=== PATIENT | female | born 1995 | race Caucasian/White ===

== ENCOUNTER 2017-10-11 22:17 | Emergency (ER) | payer BC, MEDICAID ==
[~2017-10-11] VITALS: Ht 152.4 cm; Wt 65.8 kg
[2017-10-11 22:18] VITALS: BP 135/97
--- NOTE | 2017-10-11 22:27 | NUR ---
PT AMBULATED TO BED 12
--- NOTE | 2017-10-11 22:28 | NUR ---
PATIENT PRESENTS TO ED WITH C/O PAIN TO LEFT GROIN AREA PT DENIES N/V/D; SKIN IS PINK/WARM/DRY; AAOX4 WITH EVEN AND STEADY GAIT; LUNGS CLEAR BL; HR EVEN AND REGULAR; PT DENIES ANY FEVER, CP, SOB, OR COUGH AT THIS TIME; PATIENT STATES PAIN OF 7/10 AT THIS TIME; VSS; PATIENT POSITIONED FOR COMFORT; HOB ELEVATED; BEDRAILS UP X2; BED DOWN. ER MD MADE AWARE OF PT STATUS.
[2017-10-12] MEDS ORDERED: LIDOCAINE/EPI 1% 1:100000 20 ML VIAL INJ ONE (00:05)
[2017-10-12] MEDS ORDERED: BACITRACIN OINT 500 UNITS/GM PKT TP ONE (00:11)
--- NOTE | 2017-10-12 01:39 | NUR ---
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
[2017-10-12 01:47] VITALS: BP 133/58
--- NOTE | 2017-10-12 01:48 | NUR ---
Patient discharged with v/s stable. Written and verbal after care instructions given and explained. Patient alert, oriented and verbalized understanding of instructions. Ambulatory with steady gait. All questions addressed prior to discharge. ID band removed. Patient advised to follow up with PMD. Rx of FLAGYL 500MG, CLINDAMYCIN 300MG, NORCO 5MG-325MG given. Patient educated on indication of medication including possible reaction and side effects. Opportunity to ask questions provided and answered.
== END 2017-10-12 01:48 | disposition home or self-care (01) ==
LOC: MED 22:17
DX: N76.0 Acute vaginitis (principal); Z88.0 Allergy status to penicillin
CPT/HCPCS: 56405; 99284; J2001; 99283